=== PATIENT | male | born 1950 | race Caucasian/White ===

== ENCOUNTER 2022-01-11 12:03 | Emergency (ER) | payer OTHER ==
[~2022-01-11] VITALS: Ht 165.1 cm; Wt 50.8 kg
[2022-01-11 12:33] LABS: BASOPHILS ABSOLUTE AUTO 0.04 K/mm3 (0.00-0.23); BASOPHILS PERCENT AUTO 1 % (0-2); EOSINOPHILS ABSOLUTE AUTO 0.07 K/mm3 (0.00-0.68); EOSINOPHILS PERCENT AUTO 1 % (0-6); Hematocrit 38.7 % (37.0-53.0); Hemoglobin 13.6 g/dL (13.5-17.5); IMMATURE GRAN ABSOLUTE AUTO 0.01 K/mm3 (0.00-0.10); IMMATURE GRAN PERCENT AUTO 0 % (0-1); LYMPHOCYTES ABSOLUTE AUTO 0.74 K/mm3 (0.84-5.20); LYMPHOCYTES PERCENT AUTO 11 % (21-46); MONOCYTES ABSOLUTE AUTO 0.87 K/mm3 (0.16-1.47); MONOCYTES PERCENT AUTO 13 % (4-13); Mean Corpuscular HGB 30.4 pg (26.0-34.0); Mean Corpuscular HGB Conc 35.1 g/dL (31.5-36.5); Mean Corpuscular Volume 86 fL (80-100); Mean Platelet Volume 8.3 fL (9.1-12.4); NEUTROPHILS ABSOLUTE AUTO 5.06 K/mm3 (1.96-9.15); NEUTROPHILS PERCENT AUTO 75 % (41-73); Platelet Count 308 K/mm3 (150-400); RDW Coefficient Variation 12.3 % (11.7-14.2); RDW Standard Deviation 39.2 fL (35.1-46.3); Red Blood Cell Count 4.48 M/mm3 (4.30-5.90); White Blood Cell Count 6.79 K/mm3 (4.00-11.30)
[2022-01-11 12:58] LABS: Magnesium, Blood 1.9 mg/dL (1.6-2.4)
[2022-01-11 12:59] LABS: Albumin, Blood 3.2 g/dL (3.4-5.0); Albumin/Globulin Ratio 0.8 (0.8-1.8); Bilirubin, Total 0.8 mg/dL (0.1-1.0); Calcium, Blood 9.3 mg/dL (8.5-10.1); Creatinine, Blood 0.9 mg/dL (0.60-1.20); Globulin, Blood 3.8 g/dL (2.2-4.0); Potassium, Blood 4.7 mmol/L (3.5-5.5)
== END 2022-01-11 14:52 | disposition home or self-care (01) ==
LOC: ER 12:03
PROVIDERS: Physician Assistant
DX: R19.7 Diarrhea, unspecified (principal); E11.9 Type 2 diabetes mellitus without complications; Z88.0 Allergy status to penicillin; Z88.5 Allergy status to narcotic agent; Z88.6 Allergy status to analgesic agent; Z88.8 Allergy status to other drugs, medicaments and biological substances; Z79.899 Other long term (current) drug therapy
CPT/HCPCS: 36415; 80053; 83690; 83735; 85025; A9270

== ENCOUNTER → 2022-01-11 | Outpatient (CLI) | payer OTHER ==
[~2022-01-11] MED LIST: CYCL10 PO; LISI5 PO; OXYC5; Roxicodone5 MG PO
[2022-01-12 13:15] LABS: Adenovirus F 40/41 Not Detected (NOT DETECT); Astrovirus Not Detected (NOT DETECT); Campylobacter Sp Not Detected (NOT DETECT); Cryptosporidium Not Detected (NOT DETECT); Cyclospora Cayetanensis Not Detected (NOT DETECT); E. Coli O157 Not Detected (NOT DETECT); Entamoeba Histolytica Not Detected (NOT DETECT); Enteroaggregative E. coli-EAEC Not Detected (NOT DETECT); Enteropathogenic E. coli-EPEC Not Detected (NOT DETECT); Enterotoxigenic E. coli-ETEC Not Detected (NOT DETECT); Giardia Lamblia Not Detected (NOT DETECT); Norovirus GI/GII Not Detected (NOT DETECT); Plesiomonas Shigelloides Not Detected (NOT DETECT); Rotavirus A Not Detected (NOT DETECT); Salmonella Sp Not Detected (NOT DETECT); Sapovirus Not Detected (NOT DETECT); Shiga Toxin-prod E. coli-STEC Not Detected (NOT DETECT); Shigella/Enteroin E. coli-EIEC Not Detected (NOT DETECT); Vibrio Cholerae Not Detected (NOT DETECT); Vibrio Sp Not Detected (NOT DETECT); Yersinia Enterocolitica Not Detected (NOT DETECT)
== END | disposition home or self-care (01) ==
LOC: LAB SHORT 15:47 → LAB 15:47 → LAB SHORT 01-12 10:10
PROVIDERS: Physician Assistant
DX: K52.9 Noninfective gastroenteritis and colitis, unspecified (principal)
CPT/HCPCS: 87507

== ENCOUNTER 2022-02-02 11:12 | Emergency (ER) | payer OTHER ==
[~2022-02-02] VITALS: Ht 165.1 cm; Wt 47.0 kg
[2022-02-02 12:09] LABS: BASOPHILS ABSOLUTE AUTO 0.03 K/mm3 (0.00-0.23); BASOPHILS PERCENT AUTO 1 % (0-2); EOSINOPHILS ABSOLUTE AUTO 0.06 K/mm3 (0.00-0.68); EOSINOPHILS PERCENT AUTO 1 % (0-6); Hematocrit 36.9 % (37.0-53.0); Hemoglobin 12.7 g/dL (13.5-17.5); IMMATURE GRAN ABSOLUTE AUTO 0.01 K/mm3 (0.00-0.10); IMMATURE GRAN PERCENT AUTO 0 % (0-1); LYMPHOCYTES ABSOLUTE AUTO 0.57 K/mm3 (0.84-5.20); LYMPHOCYTES PERCENT AUTO 9 % (21-46); MONOCYTES ABSOLUTE AUTO 0.63 K/mm3 (0.16-1.47); MONOCYTES PERCENT AUTO 10 % (4-13); Mean Corpuscular HGB 30.3 pg (26.0-34.0); Mean Corpuscular HGB Conc 34.4 g/dL (31.5-36.5); Mean Corpuscular Volume 88 fL (80-100); Mean Platelet Volume 7.9 fL (9.1-12.4); NEUTROPHILS ABSOLUTE AUTO 4.78 K/mm3 (1.96-9.15); NEUTROPHILS PERCENT AUTO 79 % (41-73); Platelet Count 367 K/mm3 (150-400); RDW Coefficient Variation 12.5 % (11.7-14.2); RDW Standard Deviation 39.7 fL (35.1-46.3); Red Blood Cell Count 4.19 M/mm3 (4.30-5.90); White Blood Cell Count 6.08 K/mm3 (4.00-11.30)
[2022-02-02 12:27] LABS: Albumin, Blood 3.2 g/dL (3.4-5.0); Albumin/Globulin Ratio 0.9 (0.8-1.8); Bilirubin, Total 0.5 mg/dL (0.1-1.0); Bun/Creatinine Ratio 11.1 (12.0-20.0); Calcium, Blood 9.1 mg/dL (8.5-10.1); Creatinine, Blood 0.9 mg/dL (0.60-1.20); Globulin, Blood 3.7 g/dL (2.2-4.0); Potassium, Blood 5.1 mmol/L (3.5-5.5); Total Protein, Blood 6.9 g/dL (6.4-8.2)
[2022-02-02] MEDS ORDERED: TAMSULOSIN HCL0.4 M1 PO (14:53)
[2022-02-02] MEDS ORDERED: Atarax10 MG (14:54)
[2022-02-02] MEDS ORDERED: CIME400 PO (14:57)
[2022-02-02] MEDS ORDERED: MOXI400 PO (16:25)
== END 2022-02-02 17:15 | disposition home or self-care (01) ==
LOC: ER 11:12
PROVIDERS: Physician Assistant
DX: K65.1 Peritoneal abscess (principal); Z79.899 Other long term (current) drug therapy; Z88.0 Allergy status to penicillin; Z88.5 Allergy status to narcotic agent; Z88.8 Allergy status to other drugs, medicaments and biological substances
CPT/HCPCS: 36415; 74177; 80053; 83690; 85025; 96361; 96365; 99284-25; A9270; J2185; J7030; Q9967

== ENCOUNTER 2022-12-09 06:42 | Inpatient (IN) | payer OTHER ==
[~2022-12-09] VITALS: Ht 167.6 cm; Wt 56.2 kg
[~2022-12-09 06:42] MED LIST changes: +Atarax10 MG; +CIME400 PO; +MOXI400 PO; +TAMSULOSIN HCL0.4 M1 PO
[2022-12-09 07:29] LABS: BASOPHILS ABSOLUTE AUTO 0.03 K/mm3 (0.00-0.23); BASOPHILS PERCENT AUTO 0 % (0-2); EOSINOPHILS ABSOLUTE AUTO 0.07 K/mm3 (0.00-0.68); EOSINOPHILS PERCENT AUTO 1 % (0-6); Hematocrit 39.5 % (37.0-53.0); Hemoglobin 14.3 g/dL (13.5-17.5); IMMATURE GRAN ABSOLUTE AUTO 0.03 K/mm3 (0.00-0.10); IMMATURE GRAN PERCENT AUTO 0 % (0-1); LYMPHOCYTES ABSOLUTE AUTO 1.05 K/mm3 (0.84-5.20); LYMPHOCYTES PERCENT AUTO 9 % (21-46); MONOCYTES ABSOLUTE AUTO 1.25 K/mm3 (0.16-1.47); MONOCYTES PERCENT AUTO 10 % (4-13); Mean Corpuscular HGB 30.7 pg (26.0-34.0); Mean Corpuscular HGB Conc 36.2 g/dL (31.5-36.5); Mean Corpuscular Volume 85 fL (80-100); NEUTROPHILS ABSOLUTE AUTO 9.58 K/mm3 (1.96-9.15); NEUTROPHILS PERCENT AUTO 80 % (41-73); Platelet Count 343 K/mm3 (150-400); RDW Coefficient Variation 12.8 % (11.7-14.2); RDW Standard Deviation 38.9 fL (35.1-46.3); Red Blood Cell Count 4.66 M/mm3 (4.30-5.90); White Blood Cell Count 12.01 K/mm3 (4.00-11.30)
[2022-12-09 08:58] LABS: Magnesium, Blood 1.8 mg/dL (1.6-2.4)
[2022-12-09 09:00] LABS: Albumin, Blood 3.2 g/dL (3.4-5.0); Bilirubin, Total 0.9 mg/dL (0.1-1.0); Bun/Creatinine Ratio 10.5 (12.0-20.0); Calcium, Blood 8.1 mg/dL (8.5-10.1); Creatinine, Blood 7.52 mg/dL (0.60-1.20); Globulin, Blood 3.3 g/dL (2.2-4.0); Total Protein, Blood 6.5 g/dL (6.4-8.2)
[2022-12-09 12:02] LABS: Bun/Creatinine Ratio 12.2 (12.0-20.0); Calcium, Blood 7.9 mg/dL (8.5-10.1); Creatinine, Blood 5.65 mg/dL (0.60-1.20)
[2022-12-09 12:06] VITALS: BP 111/58
[2022-12-09] MEDS ORDERED: LANSOPRAZOLE15 MG PO (12:21)
[2022-12-09] MEDS ORDERED: LOPE2C PO (12:22)
[2022-12-09 16:55] VITALS: BP 110/73
--- NOTE | 2022-12-09 17:59 | NUR ---
SHIFT NOTE. ASSUMED CARE FOR PT AT 1200 AN ADMIT FROM ED. PT ADMITTED W DEHYDRATION AND HYPONATREMIA. LR INITIATED IN ED, PT IS ON SECOND BAG OF 1,000 ML LR. PT WAS EDUCATED ABOUT CALL LIGHT, IT IS POORLY UTILIZED. PT PREFERS TO CARE FOR ILEOSTOMY HIMSELF AND REQUESTS PADS FOR INTERMITTENT RECTAL BLEEDING. PT DENIES PAIN, NAUSEA, OR DIZZINESS AND REMAINS IN BED VISITING WITH FAMILY AT BEDSIDE. CALL LIGHT REMAINS WITHIN REACH, WILL CONTINUE TO MONITOR AND GIVE BEDSIDE REPORT TO NOC RN.
--- NOTE | 2022-12-09 18:29 | NUR ---
Pt. is awake in bed surrounded by supportive family when he welcomes my visit. Pt. is pleasant, but unsettled by the weakness in his body that he is experiencing. Facilitate a life review and consider matters of joshua, belief and family. Pt. displays evidenc of being fully engaged and aware, and has a supportive family system at bedside. Prayed with the Pt. and family. Family verbalized gratitude for the spiritual care visit.
[2022-12-09 20:00] VITALS: BP 122/66
[2022-12-10 00:32] VITALS: BP 128/68
[2022-12-10 04:13] VITALS: BP 133/70
--- NOTE | 2022-12-10 04:25 | NUR ---
SHIFT SUMMARY AOX4, HIGHLY ANXIOUS. STATES HE IS ALLERGIC TO ALL MEDS PRIOR TO GIVING, REASURE MEDS ARENT ON ALLERGY LIST. MEDICATED 1x c 25MG HYDROXAZINE, PT ABLE TO REST QUIETLY & COMFORTABLY FOR 1 HR. VSS. TELE NSR HR 86. REPORTS CONSTANT EPIGASTRIC ACID, BURNING DISCOMFORT. STATES HE SWALLOWED GAS-X INSTEAD OF CHEWING TAB & HAD BURNING DISCOMFORT SINCE. AROUND 0000 PT REPORTED BURNING DISCOMFORT WORSENING, MEDICATED c 500MG TUMS & 20MG PRILOSEC PER DR KING ORDERS. PT ALSO REPORTED NAUSEA, MEDICATED c ZOFRAN & PT STARTED DRY HEAVING c EMESIS. 350ML UNDIGESTED CARROT, BROCCOLI & OTHER FOOD IN EMESIS. MEDICATED c 5MG REGLAN PER DR KING ORDERS. HYPERACTIVE BT. ILEOSTOMY c MIN SOFT BROWN, GREEN BM IN BAG-APPLIANCE INTACT. PT STILL HAVING MIN BRIGHT RED RECTAL BLEEDING, USING PADS. CALL LIGHT IN REACH & PT ABLE TO MAKE NEEDS KNOWN.
[2022-12-10 05:00] LABS: Bun/Creatinine Ratio 23.8 (12.0-20.0); Calcium, Blood 8.9 mg/dL (8.5-10.1); Creatinine, Blood 1.89 mg/dL (0.60-1.20); Potassium, Blood 4.4 mmol/L (3.5-5.5)
[2022-12-10 09:34] VITALS: BP 121/69
[2022-12-10 10:30] VITALS: BP 139/83
--- NOTE | 2022-12-10 16:54 | NUR ---
SHIFT SUMMARY PT A&O X4. PT HAS BEEN THROWING UP SINCE ARRIAVAL TO UNIT AT 1100. HAS BEEN MEDICATED FOR N/V PER EMAR. PT HAS NOT BEEN TOLERATING ANYTHING PO. DENIES ANY PAIN. ABLE TO AMBULATE TO BATHROOM AND BACK WITH ASST FROM NURSE. USES URINAL AND EMPTIES OSTOMY INDEPENDENTLY. NO RECTAL BLEEDING DURING SHIFT. FAMILY AT BEDSIDE.
[2022-12-10 19:51] VITALS: BP 112/67
[2022-12-11] VITALS (18 sets, daily range): BP systolic 89–148; BP diastolic 44–84
[2022-12-11 05:12] LABS: Hematocrit 38.1 % (37.0-53.0); Mean Corpuscular HGB Conc 34.1 g/dL (31.5-36.5); Mean Corpuscular Volume 88 fL (80-100); Mean Platelet Volume 9.2 fL (9.1-12.4); Platelet Count 275 K/mm3 (150-400); RDW Coefficient Variation 12.6 % (11.7-14.2); RDW Standard Deviation 40.9 fL (35.1-46.3); Red Blood Cell Count 4.34 M/mm3 (4.30-5.90)
[2022-12-11 05:44] LABS: Albumin, Blood 3.1 g/dL (3.4-5.0); Albumin/Globulin Ratio 0.9 (0.8-1.8); Bilirubin, Total 1.2 mg/dL (0.1-1.0); Bun/Creatinine Ratio 23.3 (12.0-20.0); Calcium, Blood 8.8 mg/dL (8.5-10.1); Creatinine, Blood 1.46 mg/dL (0.60-1.20); Globulin, Blood 3.4 g/dL (2.2-4.0); Potassium, Blood 4.7 mmol/L (3.5-5.5); Total Protein, Blood 6.5 g/dL (6.4-8.2)
--- NOTE | 2022-12-11 06:26 | NUR ---
SHIFT SUMMARY AOX4-FORGETFUL & IMPULSIVE @BEGINNING OF SHIFT. USING CALL LIGHT MORE TOWARDS END OF NIGHT. VSS. DENIES PAIN. DID REPORT NAUSEA & HAVE MILD DRY HEAVING @HS, MEDICATED 1x c ZOFRAN & 1x c REGLAN. THIS AM PT STATES HE NO LONGER FEELS NAUSEATED & HASNT HAD ANY DRY HEAVING OR EMESIS. ILEOSTOMY HAD 1900ML DARK GREEN LIQUID OUTPUT OUT THIS SHIFT. PT DENIES ABD TENDERNESS. ACTIVE BT. STATES HE FEELS LIKE EATING OR DRINKING THIS AM, HAS BEEN NPO SINCE 0000 FOR POSSIBLE PROCEDURE. PT DID TAKE 2 XS BITES OF BANANA THIS AM BECAUSE HE FORGOT HE WASNT SUPPOSE TO EAT. CALL LIGHT IN REACH & PT ABLE TO MAKE NEEDS KNOWN.
--- NOTE | 2022-12-11 13:24 | NUR ---
PATIENT STATED OK TO REMOVE PROPOFOL FROM ALLERGY LIST. PATIENT WAS CONFUSED OF THE MEDICATION THAT WAS USED FOR RECTAL CA TREATMENTS. STATED IT CAUSED HALLUCINATIONS. THIS IS NOT A TRUE ALLERGY IF MEDICATION WAS USED. SPOKE TO DR HERNÁNDEZ, ANESTHESIOLOGIST AND AGREED TO PROCEED WITH EGD USING PROPOFOL FOR SEDATION. INFORMED DR LEIGH REGARDING SITUATION AND WAS OK TO PROCEED. ALSO, FAMILY WAS INFORMED OF THE MEDICATION BEING REMOVED FROM ALLERGY LIST.
--- NOTE | 2022-12-11 16:55 | NUR ---
SHIFT SUMMARY PODO EDG PT A&O X4, ABLE TO AMBULATE IN ROOM WITH SOME ASST. PT TOLERATED EGD WELL. NO COMPAINTS OF PAIN. NO N/V T/O SHIFT. FAMILY AT BEDSIDE T/O DAY. VSS T/O SHIFT.
[2022-12-12 03:50] VITALS: BP 120/71
--- NOTE | 2022-12-12 05:06 | NUR ---
SHIFT SUMMARY AOX4. MORE ALERT THIS ABBEY THEN PREVIOUS NIGHT. VSS. DENIES ANY N/V OR ABD DISCOMFORT. STATES "FEELING WAY BETTER". TOLERATING PO INTAKE. ACTIVE BT. ILEOSTOMY c BROWN/YELLOW LOOSE-SOFT BM IN BAG. PT ABLE TO IND TRANSFER TO RESTROOM & EMPTY OWN ILEOSTOMY & USE URINAL. PLAN TO POSSIBLE DC TODAY. CALL LIGHT IN REACH.
[2022-12-12 06:13] LABS: Hematocrit 40.3 % (37.0-53.0); Hemoglobin 13.7 g/dL (13.5-17.5); Mean Corpuscular HGB 30.1 pg (26.0-34.0); Mean Corpuscular Volume 89 fL (80-100); Mean Platelet Volume 8.8 fL (9.1-12.4); Platelet Count 272 K/mm3 (150-400); RDW Coefficient Variation 12.5 % (11.7-14.2); RDW Standard Deviation 40.8 fL (35.1-46.3); Red Blood Cell Count 4.55 M/mm3 (4.30-5.90); White Blood Cell Count 6.45 K/mm3 (4.00-11.30)
[2022-12-12 06:35] LABS: Bun/Creatinine Ratio 22.2 (12.0-20.0); Calcium, Blood 9.2 mg/dL (8.5-10.1); Creatinine, Blood 1.26 mg/dL (0.60-1.20); Potassium, Blood 4.4 mmol/L (3.5-5.5)
[2022-12-12 07:13] VITALS: BP 112/73
[2022-12-12] MEDS ORDERED: SIME80CH PO (13:57)
[2022-12-12 14:27] VITALS: BP 108/60
--- NOTE | 2022-12-12 15:24 | NUR ---
DISCHARGE PT PROVIDED WITH WRITTEN AND VERBAL DISCHARGE INSTRUCTIONS, PT REPORTED UNDERSTANDING. NO NAUSEA OR VOMITING PRIOR TO DISCHARGE. VSS. PT EDUCATED TO F/U WITH PCP IN 1 WEEK REGARDING HOSPITAL STAY AND FOR REPEAT LABS. PT EDUCATED TO SEEK HELP IF SYMPTOMS RETURN. PT ESCORTED OUT IN W/C BY FAMILY AT 1502.
== END 2022-12-12 15:00 | disposition home or self-care (01) | DRG 683 ==
LOC: ER 06:42 → PCU 06:43 → SURS 12-10 10:34
PROVIDERS: Emergency Medicine; Student in an Organized Health Care Education/Training Program; ADMIT Internal Medicine
PROC: 0DB68ZX Excision of Stomach, Via Natural or Artificial Opening Endoscopic, Diagnostic (ICD-10-PCS; 2022-12-11)
PROC: 0DB18ZX Excision of Upper Esophagus, Via Natural or Artificial Opening Endoscopic, Diagnostic (ICD-10-PCS; principal; 2022-12-11 13:00)
DX: N17.9 Acute kidney failure, unspecified (principal); E87.1 Hypo-osmolality and hyponatremia; E86.0 Dehydration; K25.9 Gastric ulcer, unspecified as acute or chronic, without hemorrhage or perforation; R63.6 Underweight; E11.9 Type 2 diabetes mellitus without complications; R11.2 Nausea with vomiting, unspecified; Z90.49 Acquired absence of other specified parts of digestive tract; Z98.890 Other specified postprocedural states; Z87.442 Personal history of urinary calculi; Z93.2 Ileostomy status; Z85.048 Personal history of other malignant neoplasm of rectum, rectosigmoid junction, and anus; Z92.3 Personal history of irradiation; Z88.0 Allergy status to penicillin; Z88.8 Allergy status to other drugs, medicaments and biological substances; Z88.1 Allergy status to other antibiotic agents; Z88.5 Allergy status to narcotic agent; Z88.2 Allergy status to sulfonamides; Z79.899 Other long term (current) drug therapy; Z79.811 Long term (current) use of aromatase inhibitors; Z68.20 Body mass index [BMI] 20.0-20.9, adult
CPT/HCPCS: 36415; 70450; 72125; 74177; 80048; 80053; 83605; 83690; 83735; 85025; 85027; 88305; 88342; 93005; 93010; 96374; 96375; 96376; 97161; 99285-25; A9270; C9113; G0378; J1200; J2060; J2405; J2704; J2765; J7030; J7120; Q9967

== ENCOUNTER 2025-04-01 20:08 | Inpatient (IN) | payer OTHER ==
[~2025-04-01] VITALS: Ht 165.1 cm; Wt 56.9 kg
[~2025-04-01 20:08] MED LIST changes: +AMLODIPINE BESYL5 MG PO; +LANSOPRAZOLE15 MG PO; +LOPE2C PO; +SIME80CH PO
[2025-04-01] MEDS ORDERED: Pantoprazole Sodium 40 MG Injection IV ONE (20:45)
[2025-04-01 20:51] LABS: BASOPHILS ABSOLUTE AUTO 0.02 K/mm3 (0.00-0.23); BASOPHILS PERCENT AUTO 0 % (0-2); EOSINOPHILS ABSOLUTE AUTO 0.05 K/mm3 (0.00-0.68); EOSINOPHILS PERCENT AUTO 0 % (0-6); Hematocrit 39.4 % (37.0-53.0); Hemoglobin 14.1 g/dL (13.5-17.5); IMMATURE GRAN ABSOLUTE AUTO 0.03 K/mm3 (0.00-0.10); IMMATURE GRAN PERCENT AUTO 0 % (0-1); LYMPHOCYTES ABSOLUTE AUTO 0.50 K/mm3 (0.84-5.20); LYMPHOCYTES PERCENT AUTO 4 % (21-46); MONOCYTES ABSOLUTE AUTO 0.56 K/mm3 (0.16-1.47); MONOCYTES PERCENT AUTO 5 % (4-13); Mean Corpuscular HGB Conc 35.8 g/dL (31.5-36.5); Mean Corpuscular Volume 86 fL (80-100); NEUTROPHILS ABSOLUTE AUTO 10.89 K/mm3 (1.96-9.15); NEUTROPHILS PERCENT AUTO 91 % (41-73); NRBC ABSOLUTE 0.00 K/mm3 (0.00-0.02); NRBC Auto 0.0 /100 WBC (0.0-0.2); Platelet Count 297 K/mm3 (150-400); RDW Coefficient Variation 12.4 % (11.7-14.2); RDW Standard Deviation 38.4 fL (35.1-46.3)
[2025-04-01 21:08] LABS: Alanine Aminotransfer (ALT/SGP 19.0 U/L (12-78); Albumin, Blood 3.5 g/dL (3.4-5.0); Albumin/Globulin Ratio 1.0 (0.8-1.8); Anion Gap 13.0 mmol/L (3-11); Aspartate Aminotrans (AST/SGOT 25.0 U/L (12-37); Bilirubin, Total 1.3 mg/dL (0.1-1.0); Blood Urea Nitrogen 7.0 mg/dL (8-24); CO2, Blood 20.0 mmol/L (21-32); Calcium, Blood 8.6 mg/dL (8.5-10.1); Chloride, Blood 99.0 mmol/L (98-108); Creatinine, Blood 0.86 mg/dL (0.60-1.20); Globulin, Blood 3.6 g/dL (2.2-4.0); Glucose, Blood 137.0 mg/dL (70-99); Potassium, Blood 3.5 mmol/L (3.5-5.5); Sodium, Blood 128.0 mmol/L (136-145); Total Protein, Blood 7.1 g/dL (6.4-8.2)
[2025-04-01] MEDS ORDERED: NS 1,000 ML IV SCH (22:05)
[2025-04-01] MEDS ORDERED: Haloperidol Lactate Inj. 5 MG/ML Injection IV ONE (22:05)
[2025-04-01] MEDS ORDERED: FentaNYL Citrate 50 MCG/ML 2 ML Injection IV ONE (23:40)
[2025-04-02] MEDS ORDERED: LORazepam 2 MG/ML 1ML Injection IV ONE (00:26)
[2025-04-02] MEDS ORDERED: Naloxone HCl 0.4MG / ML 1ML Vial IV PRN (01:45)
[2025-04-02] MEDS ORDERED: FentaNYL Citrate 50 MCG/ML 2 ML Injection IV PRN (01:45)
[2025-04-02] MEDS ORDERED: Ondansetron HCl 2 MG / ML 2ML Vial IV PRN (01:50)
[2025-04-02 05:13] VITALS: BP 136/71
[2025-04-02 07:00] VITALS: BP 139/72
[2025-04-02 08:42] LABS: BASOPHILS ABSOLUTE AUTO 0.02 K/mm3 (0.00-0.23); BASOPHILS PERCENT AUTO 0 % (0-2); EOSINOPHILS ABSOLUTE AUTO 0.01 K/mm3 (0.00-0.68); EOSINOPHILS PERCENT AUTO 0 % (0-6); Hematocrit 39.5 % (37.0-53.0); Hemoglobin 13.9 g/dL (13.5-17.5); IMMATURE GRAN ABSOLUTE AUTO 0.00 K/mm3 (0.00-0.10); IMMATURE GRAN PERCENT AUTO 0 % (0-1); LYMPHOCYTES ABSOLUTE AUTO 0.39 K/mm3 (0.84-5.20); LYMPHOCYTES PERCENT AUTO 7 % (21-46); MONOCYTES ABSOLUTE AUTO 0.63 K/mm3 (0.16-1.47); MONOCYTES PERCENT AUTO 11 % (4-13); Mean Corpuscular HGB Conc 35.2 g/dL (31.5-36.5); Mean Corpuscular Volume 86 fL (80-100); NEUTROPHILS ABSOLUTE AUTO 4.93 K/mm3 (1.96-9.15); NEUTROPHILS PERCENT AUTO 83 % (41-73); NRBC ABSOLUTE 0.00 K/mm3 (0.00-0.02); NRBC Auto 0.0 /100 WBC (0.0-0.2); Platelet Count 273 K/mm3 (150-400); RDW Coefficient Variation 12.6 % (11.7-14.2); RDW Standard Deviation 39.5 fL (35.1-46.3)
[2025-04-02 08:55] LABS: Alanine Aminotransfer (ALT/SGP 26.0 U/L (12-78); Albumin, Blood 3.4 g/dL (3.4-5.0); Albumin/Globulin Ratio 1.0 (0.8-1.8); Anion Gap 11.0 mmol/L (3-11); Aspartate Aminotrans (AST/SGOT 27.0 U/L (12-37); Bilirubin, Total 1.5 mg/dL (0.1-1.0); Blood Urea Nitrogen 6.0 mg/dL (8-24); CO2, Blood 25.0 mmol/L (21-32); Calcium, Blood 8.5 mg/dL (8.5-10.1); Chloride, Blood 99.0 mmol/L (98-108); Creatinine, Blood 0.87 mg/dL (0.60-1.20); Globulin, Blood 3.3 g/dL (2.2-4.0); Glucose, Blood 121.0 mg/dL (70-99); Potassium, Blood 4.4 mmol/L (3.5-5.5); Sodium, Blood 131.0 mmol/L (136-145); Total Protein, Blood 6.7 g/dL (6.4-8.2)
[2025-04-02] MEDS ORDERED: Lactobacil 2-S.Thermo-Bifido 1 1 Cap PO SCH (09:00)
[2025-04-02] MEDS ORDERED: HYDROmorphone HCl/Pf 1MG SYR IV PRN (09:10)
[2025-04-02] MEDS ORDERED: Enoxaparin 40 MG/0.4 ML SYR SC SCH (11:00)
--- NOTE | 2025-04-02 11:04 | NUR ---
"Spiritual Care Visit | Pt. Request Pt. is awake in bed and welcomes my visit. Pt. is pleasant and welcoming. Facilitated a life review where the Pt. shared about his spouse who also has some growing cancer concerns. Listen with empahty and interest. Pt. verbalized about his doris. Matters of Doris and belief are considered. Prayed with the Pt. Pt. requested this veneer matcher contact his zoroastrian about his hospital admission."
[2025-04-02 15:40] VITALS: BP 146/69
--- NOTE | 2025-04-02 16:45 | NUR ---
SUMMARY PATIENT IS AOX4, ABLE TO MAKE NEEEDS KNOWN. NG TUBE IN PLACE, NPO AT THIS TIME. IVF RUNNING. SCDS IN PLACE. PAIN MEDICATION PER EMAR. ABLE TO TRANSFER SELF TO BSC TO VOID. MINIMAL OUTPUT IN NG CANISTER. GREEN IN COLOR. NO STOOL OR FLATUS IN OSTOMY. NO EVENTS THIS SHIFT, VSS. CALL LIGHT IN REACH.
[2025-04-02 19:01] VITALS: BP 136/73
[2025-04-03] MEDS ORDERED: LORazepam 2 MG/ML 1ML Injection IV PRN (01:20)
[2025-04-03 04:22] VITALS: BP 133/66
[2025-04-03 05:19] LABS: Hematocrit 37.9 % (37.0-53.0); Hemoglobin 13.1 g/dL (13.5-17.5); Mean Corpuscular HGB Conc 34.6 g/dL (31.5-36.5); Mean Corpuscular Volume 89 fL (80-100); NRBC ABSOLUTE 0.00 K/mm3 (0.00-0.02); NRBC Auto 0.0 /100 WBC (0.0-0.2); Platelet Count 235 K/mm3 (150-400); RDW Coefficient Variation 13.0 % (11.7-14.2); RDW Standard Deviation 42.5 fL (35.1-46.3)
[2025-04-03 05:55] LABS: Alanine Aminotransfer (ALT/SGP 39.0 U/L (12-78); Albumin, Blood 2.8 g/dL (3.4-5.0); Albumin/Globulin Ratio 0.9 (0.8-1.8); Anion Gap 9.0 mmol/L (3-11); Aspartate Aminotrans (AST/SGOT 28.0 U/L (12-37); Bilirubin, Total 1.3 mg/dL (0.1-1.0); Blood Urea Nitrogen 11.0 mg/dL (8-24); CO2, Blood 27.0 mmol/L (21-32); Calcium, Blood 8.3 mg/dL (8.5-10.1); Chloride, Blood 101.0 mmol/L (98-108); Creatinine, Blood 0.88 mg/dL (0.60-1.20); Globulin, Blood 3.2 g/dL (2.2-4.0); Glucose, Blood 104.0 mg/dL (70-99); Potassium, Blood 4.1 mmol/L (3.5-5.5); Sodium, Blood 133.0 mmol/L (136-145); Total Protein, Blood 6.0 g/dL (6.4-8.2)
[2025-04-03 05:56] LABS: BAND PERCENT MAN 43 % (0-8); BASOPHILS ABSOLUTE MAN 0.00 K/mm3 (0.00-0.23); BASOPHILS PERCENT MAN 0 % (0-2); EOSINOPHILS ABSOLUTE MAN 0.00 K/mm3 (0.00-0.68); EOSINOPHILS PERCENT MAN 0 % (0-6); LYMPHOCYTES ABSOLUTE MAN 0.47 K/mm3 (0.84-5.20); LYMPHOCYTES PERCENT MAN 12 % (21-46); METAMYELOCYTE ABSOLUTE MAN 0.03 K/mm3 (0.00-0.00); METAMYELOCYTE PERCENT MAN 1 % (0-0); MONOCYTES ABSOLUTE MAN 0.67 K/mm3 (0.16-1.47); MONOCYTES PERCENT MAN 17 % (4-13); NEUTROPHILS ABSOLUTE MAN 2.78 K/mm3 (1.96-9.15); SEG NEUTROPHILS PERCENT MAN 27 % (41-73)
--- NOTE | 2025-04-03 06:46 | NUR ---
SHIFT SUMMARY AT START OF SHIFT, PT SITTING UP IN BED. HIS LR RECONNECTED. TURNED DOWN RATE TO 75ML/HR TO PREVENT INFILTRATION D/T SMALL GAUGE IV. PT GIVEN PAIN MEDICATION COVERAGE AT 1918. AT REASSESSMENT, PT STATED PAIN LEVEL AT A 2/10. MEDICATED FOR PAIN PER EMAR AT 2334. APPROX [id number], PT STATED HE WAS FEELING ANXIOUS. CALLED DOCTOR DEBBIE AND ORDERED IV ATIVAN. PT SLEEPING, WILL ADMINISTER UPON WAKING.
[2025-04-03 07:12] VITALS: BP 146/67
[2025-04-03] MEDS ORDERED: LOSA25 PO (08:44)
[2025-04-03 10:27] VITALS: BP 141/71
--- NOTE | 2025-04-03 10:30 | NUR ---
UPDATE PATIENT IN IMAGING FOR SMALL BOWEL FOLLOW THROUGH. TECH CALLED FOR RN TO ADVANCE NG TUBE IT WAS NOT IN CORRECT PLACEMENT. CHARGE ABLE TO GO DOWN AND ADVANCE TUBE. CONTRAST GIVEN AND PATIENT IMMEDIATELY VOMITTED 1200ML. PATIENT UNABLE TO TOLERATE MORE IMAGING. BACK IN ROOM THIS RN HOOKED NG TUBE TO SX, PATIENT VOMITTED ANOTHER 400ML OF GREEN LIQUID. NOTIFIED DR. JOHNS OF TEST FAIL. PATIENT BACK IN ROOM SITTING UP 90 DEGREES. IV ACCESS IS LOST AT THIS TIME. WILL TRY TO ATTEMPT ANOTHER IV START. CALL LIGHT IN REACH. VSS.
--- NOTE | 2025-04-03 11:34 | NUR ---
Pt. is awake but drowsy in bed. Spouse and Son are at bedisde. Facilitated an update, and the family verbalized that the Pt. returned form his scan more lethergic. Pt. displayed evidence of feeling miserable. Prayed with Pt. Family verbalized gratitude for the spiritual care visit. Notified the charge nurse of the Pts. concerns.
[2025-04-03 15:56] VITALS: BP 137/66
--- NOTE | 2025-04-03 17:10 | NUR ---
SHIFT SUMMARY PATIENT WENT FOR SMALL BOWEL FOLLOW THROUGH. UNABLE TO TOLERATE CONTRAST BACK TO ROOM VOMITTING 1000ML OF EMESIS. HOOKED BACK TO SX. 1200ML OUT IN NG TUBE. PATIENT APPEARING ANXIOUS T/O DAY, WAS ABLE TO SLEEP FOR A FEW HOURS. DENIES PAIN AT THIS TIME. STOMA WITH YELLOW LIQUID OUTPUT THIS AM, NOW WITH GREEN LIQUID OUTPUT. VOIDING WITH BSC, SBA. X-RAY DONE THIS AFTERNOON. DR. JOHNS IN TO ROUND. CONT. WITH NG TUBE, OVERNIGHT. PATIENT AGREEABLE. FAMILY IN ROOM TO SUPPORT PATIENT. VSS. CALL LIGHT IN REACH.
[2025-04-03 19:06] VITALS: BP 126/58
[2025-04-04 06:18] VITALS: BP 134/65
--- NOTE | 2025-04-04 06:38 | NUR ---
SHIFT SUMMARY PT HAS DONE WELL OVERNIGHT. PT DENIES PAIN T/O THE NIGHT. NO ANXIETY. PT REPORTS THAT HE IS PASSING SOME GAS, GREEN LIQUID OUTPUT IN ILLEOSTOMY, EMPTIED SEVERAL TIMES THIS SHIFT. BOWEL TONES HYPOACTIVE. PT PULLED HIS NG WHEN GETTING OOB. PT HAS HAD MINIMAL OUTPUT FROM NG AND NO NAUSEA. DR. METCALF CALLED AND NOTIFIED THAT PT PULLED NG OUT. IT IS NOTED IN SURGEON'S NOTE THAT HE HAD PLAN TO DC NGT. DR. METCALF MADE AWARE OF THAT NOTE. DR. SARMIENTO STATES OK TO LEAVE OUT TUBE. VITALS ARE STABLE. BED IN LOWEST POSITION, CALL LIGHT WITHIN REACH.
[2025-04-04 06:41] LABS: Hematocrit 36.9 % (37.0-53.0); Hemoglobin 12.4 g/dL (13.5-17.5); Mean Corpuscular HGB Conc 33.6 g/dL (31.5-36.5); Mean Corpuscular Volume 89 fL (80-100); NRBC ABSOLUTE 0.00 K/mm3 (0.00-0.02); NRBC Auto 0.0 /100 WBC (0.0-0.2); Platelet Count 246 K/mm3 (150-400); RDW Coefficient Variation 12.9 % (11.7-14.2); RDW Standard Deviation 42.2 fL (35.1-46.3)
[2025-04-04 06:58] LABS: Alanine Aminotransfer (ALT/SGP 32.0 U/L (12-78); Albumin, Blood 3.0 g/dL (3.4-5.0); Albumin/Globulin Ratio 0.8 (0.8-1.8); Anion Gap 8.0 mmol/L (3-11); Aspartate Aminotrans (AST/SGOT 20.0 U/L (12-37); Bilirubin, Total 0.9 mg/dL (0.1-1.0); Blood Urea Nitrogen 18.0 mg/dL (8-24); CO2, Blood 32.0 mmol/L (21-32); Calcium, Blood 8.7 mg/dL (8.5-10.1); Chloride, Blood 102.0 mmol/L (98-108); Creatinine, Blood 0.86 mg/dL (0.60-1.20); Globulin, Blood 3.6 g/dL (2.2-4.0); Glucose, Blood 97.0 mg/dL (70-99); Potassium, Blood 3.9 mmol/L (3.5-5.5); Sodium, Blood 138.0 mmol/L (136-145); Total Protein, Blood 6.6 g/dL (6.4-8.2)
[2025-04-04 07:01] LABS: BAND PERCENT MAN 8 % (0-8); BASOPHILS ABSOLUTE MAN 0.00 K/mm3 (0.00-0.23); BASOPHILS PERCENT MAN 0 % (0-2); EOSINOPHILS ABSOLUTE MAN 0.00 K/mm3 (0.00-0.68); EOSINOPHILS PERCENT MAN 0 % (0-6); LYMPHOCYTES ABSOLUTE MAN 1.15 K/mm3 (0.84-5.20); LYMPHOCYTES PERCENT MAN 18 % (21-46); MONOCYTES ABSOLUTE MAN 0.32 K/mm3 (0.16-1.47); MONOCYTES PERCENT MAN 5 % (4-13); NEUTROPHILS ABSOLUTE MAN 4.93 K/mm3 (1.96-9.15); SEG NEUTROPHILS PERCENT MAN 69 % (41-73)
[2025-04-04 07:06] VITALS: BP 126/58
[2025-04-04 14:25] VITALS: BP 125/70
--- NOTE | 2025-04-04 18:18 | NUR ---
SUMMARY: PT REPORTS FEELING MUCH BETTER TODAY. NO PAIN OR NAUSEA. PT TOOK MULTIPLE WALKS IN HALLS. ANTIBIOTICS INFUSED. PT TOLERATING CLEAR LIQ AND LIQ GREEN OUTPUT FROM OSTOMY. NO ACUTE CONCERNS. PT USES CALL LIGHT, INDEP IN ROOM
[2025-04-04 19:23] VITALS: BP 127/59
[2025-04-05 02:32] VITALS: BP 144/68
--- NOTE | 2025-04-05 03:13 | NUR ---
PT WITH ONLY 50 ML VOID THIS SHIFT AND BLADDER SCAN COMPLETED @ RESULT OF [address] METCALF AND ADVISED OF BLADDER SCAN WITH PT HX OF USING FLOMAX AT HOME.FLOMAX ORDERED.
--- NOTE | 2025-04-05 03:17 | NUR ---
SPOKE TO TAMMY PHARMACIST AND WAS ADVISED IT IS OK TO GIVE PT NOW DOSE AND START DAILY DOSE IN AM.
--- NOTE | 2025-04-05 03:35 | NUR ---
FOLLOW UP CALL FROM PHARMACY WITH RECOMMENDATION CHANGE TO GIVE FLOMAX DAILY AT HS-PT TAKES AT HS.
--- NOTE | 2025-04-05 05:19 | NUR ---
SHIFT SUMMARY PT HAS RESTED T/O THE NIGHT, PT REPORTED SOME ABD AT THE BEGINNING OF THE SHIFT THAT WAS RELIEVED WITH TYLENOL. PT HAS HAD NO N/V. ILLEOSTOMY PRODCING STOOL. PT HAS BEEN VOIDING SMALL AMOUNTS OF URINE AT A TIME, BLADDER SCAN REVEALED A LITTLE UNDER 400 MLS IN BLADDER. PROVIDER NOTIFIED AND HOME FLOMAX DOSE RESUMED. PLAN IS FOR POSSIBLE DC TODAY. BED IN LOWEST POSITION, CALL LIGHT WITHIN REACH.
[2025-04-05 06:59] LABS: BASOPHILS ABSOLUTE AUTO 0.01 K/mm3 (0.00-0.23); BASOPHILS PERCENT AUTO 0 % (0-2); EOSINOPHILS ABSOLUTE AUTO 0.24 K/mm3 (0.00-0.68); EOSINOPHILS PERCENT AUTO 4 % (0-6); Hematocrit 36.8 % (37.0-53.0); Hemoglobin 12.1 g/dL (13.5-17.5); IMMATURE GRAN ABSOLUTE AUTO 0.04 K/mm3 (0.00-0.10); IMMATURE GRAN PERCENT AUTO 1 % (0-1); LYMPHOCYTES ABSOLUTE AUTO 1.02 K/mm3 (0.84-5.20); LYMPHOCYTES PERCENT AUTO 17 % (21-46); MONOCYTES ABSOLUTE AUTO 0.66 K/mm3 (0.16-1.47); MONOCYTES PERCENT AUTO 11 % (4-13); Mean Corpuscular HGB Conc 32.9 g/dL (31.5-36.5); Mean Corpuscular Volume 90 fL (80-100); NEUTROPHILS ABSOLUTE AUTO 4.23 K/mm3 (1.96-9.15); NEUTROPHILS PERCENT AUTO 68 % (41-73); NRBC ABSOLUTE 0.00 K/mm3 (0.00-0.02); NRBC Auto 0.0 /100 WBC (0.0-0.2); Platelet Count 240 K/mm3 (150-400); RDW Coefficient Variation 12.7 % (11.7-14.2); RDW Standard Deviation 42.0 fL (35.1-46.3)
[2025-04-05 07:14] VITALS: BP 131/74
[2025-04-05 07:18] LABS: Alanine Aminotransfer (ALT/SGP 31.0 U/L (12-78); Albumin, Blood 3.0 g/dL (3.4-5.0); Albumin/Globulin Ratio 0.9 (0.8-1.8); Anion Gap 6.0 mmol/L (3-11); Aspartate Aminotrans (AST/SGOT 23.0 U/L (12-37); Bilirubin, Total 0.6 mg/dL (0.1-1.0); Blood Urea Nitrogen 18.0 mg/dL (8-24); CO2, Blood 33.0 mmol/L (21-32); Calcium, Blood 8.4 mg/dL (8.5-10.1); Chloride, Blood 102.0 mmol/L (98-108); Creatinine, Blood 0.81 mg/dL (0.60-1.20); Globulin, Blood 3.3 g/dL (2.2-4.0); Glucose, Blood 100.0 mg/dL (70-99); Magnesium, Blood 2.1 mg/dL (1.6-2.4); Phosphorus, Blood 1.8 mg/dL (2.5-4.9); Potassium, Blood 3.7 mmol/L (3.5-5.5); Sodium, Blood 137.0 mmol/L (136-145); Total Protein, Blood 6.3 g/dL (6.4-8.2)
--- NOTE | 2025-04-05 10:53 | NUR ---
DR PETERSON IN TO SEE PT.
[2025-04-05] MEDS ORDERED: Acetaminophen650 M1 PO (13:20)
[2025-04-05] MEDS ORDERED: HYDMOR2 PO (13:21)
[2025-04-05] MEDS ORDERED: VISBIOME 112.51 EACH PO (13:21)
--- NOTE | 2025-04-05 13:49 | NUR ---
DR PETERSON CANCELLING PT'S DC D/T ABD XR RESULTS NOTIFIED PT AND PT'S FAMILY.
[2025-04-05 14:38] VITALS: BP 122/60
[2025-04-05] MEDS ORDERED: Ciprofloxacin 400MG/D5 200ML 200 ML IV SCH (16:00)
--- NOTE | 2025-04-05 17:28 | NUR ---
SUMMARY PT AMBULATED SEVERAL TIMES IN GIRON W/FAMILY THIS SHIFT. IS HAVING MULTIPLE INCONTINENT SOFT, UNFORMED GRAYISH BMS RECTALLY. PASSING LIQUID GREENISH BROWN LIQUID STOOL FROM ILEOSTOMY. PT ANXIOUS, MEDICATED PER ORDERS FOR ANXIETY AND PAIN THIS AFTERNOON. PT ANXOUS TO BE DC'D. DISCHARGE CANCELLED TODAY BY D/T RESULTS OF ABDOMINAL XR. PT INDEPENDENT IN ROOM.
[2025-04-05 20:30] VITALS: BP 137/62
[2025-04-05] MEDS ORDERED: Lactobacil 2-S.Thermo-Bifido 1 1 Cap PO SCH (21:00)
--- NOTE | 2025-04-06 00:02 | NUR ---
PAIN PTS DAUGHTER WAS ON RM PHONE & ASKED TO SPEAK TO THIS NURSE. DAUGHTER INFORMED ME PT WAS IN PAIN & NEEDED PAIN MEDS. ASKED PT IF THERE WAS A REASON WHY HE HADNT INFORMED ME WHY HE WAS IN PAIN. DAUGHTER SAID PT IS WORRIED TO LET STAFF KNOW ABOUT HIS PAIN BECAUSE HE REALLY WANTS TO GO HOME, DAUGHTER INFORMED PT IT IS IMPORTANT TO TELL STAFF OF PAIN. PT NOT DUE FOR ANY PAIN MEDS, CHARGE NURSE KRISTAN Thornton INFORMED HOSPITALIST PT NEEDING PAIN MEDS & NOT DUE FOR ANYTHING & DR LEWIS CHANGED ORDER TO 1MG PO DILAUDID Q4 & TYLENOL ORDER TO Q4. MEDICATED PT WITH NEW ORDER.
[2025-04-06 04:01] VITALS: BP 129/62
--- NOTE | 2025-04-06 04:24 | NUR ---
SHIFT SUMMARY AOX4. VSS. ILEOSTOMY W/LARGE AMOUNT LIQUID BROWN OUTPUT THIS SHIFT. PT STILL PASSING MIN [place] COLOR SOFT STOOL OUT RECTUM. PT PASSING FLATUS. DENIES N/V. ACTIVE BT. REPORTED 5/10 PAIN TO LLQ ABD @BEGINNING OF SHIFT, AFTER GETTING PAIN MEDS ADJUSTED & MEDICATING PT REPORTS PAIN LEVEL ONLY 1/10 THIS AM. CALL LIGHT IN REACH.
[2025-04-06 07:26] VITALS: BP 117/55
[2025-04-06 08:14] LABS: BASOPHILS ABSOLUTE AUTO 0.04 K/mm3 (0.00-0.23); BASOPHILS PERCENT AUTO 1 % (0-2); EOSINOPHILS ABSOLUTE AUTO 0.16 K/mm3 (0.00-0.68); EOSINOPHILS PERCENT AUTO 2 % (0-6); Hematocrit 34.4 % (37.0-53.0); Hemoglobin 11.6 g/dL (13.5-17.5); IMMATURE GRAN ABSOLUTE AUTO 0.05 K/mm3 (0.00-0.10); IMMATURE GRAN PERCENT AUTO 1 % (0-1); LYMPHOCYTES ABSOLUTE AUTO 0.90 K/mm3 (0.84-5.20); LYMPHOCYTES PERCENT AUTO 11 % (21-46); MONOCYTES ABSOLUTE AUTO 0.94 K/mm3 (0.16-1.47); MONOCYTES PERCENT AUTO 12 % (4-13); Mean Corpuscular HGB Conc 33.7 g/dL (31.5-36.5); Mean Corpuscular Volume 90 fL (80-100); NEUTROPHILS ABSOLUTE AUTO 5.84 K/mm3 (1.96-9.15); NEUTROPHILS PERCENT AUTO 74 % (41-73); NRBC ABSOLUTE 0.00 K/mm3 (0.00-0.02); NRBC Auto 0.0 /100 WBC (0.0-0.2); Platelet Count 247 K/mm3 (150-400); RDW Coefficient Variation 12.4 % (11.7-14.2); RDW Standard Deviation 41.0 fL (35.1-46.3)
[2025-04-06 08:32] LABS: Alanine Aminotransfer (ALT/SGP 37.0 U/L (12-78); Albumin, Blood 2.8 g/dL (3.4-5.0); Albumin/Globulin Ratio 0.9 (0.8-1.8); Anion Gap 6.0 mmol/L (3-11); Aspartate Aminotrans (AST/SGOT 34.0 U/L (12-37); Bilirubin, Total 0.7 mg/dL (0.1-1.0); Blood Urea Nitrogen 9.0 mg/dL (8-24); CO2, Blood 33.0 mmol/L (21-32); Calcium, Blood 8.2 mg/dL (8.5-10.1); Chloride, Blood 98.0 mmol/L (98-108); Creatinine, Blood 0.77 mg/dL (0.60-1.20); Globulin, Blood 3.2 g/dL (2.2-4.0); Glucose, Blood 97.0 mg/dL (70-99); Potassium, Blood 3.6 mmol/L (3.5-5.5); Sodium, Blood 133.0 mmol/L (136-145); Total Protein, Blood 6.0 g/dL (6.4-8.2)
[2025-04-06] MEDS ORDERED: HYDMOR2 PO (10:14)
[2025-04-06] MEDS ORDERED: CIPR500 PO (10:17)
== END 2025-04-06 11:13 | disposition home or self-care (01) | DRG 388 ==
LOC: ER 20:08 → SURS 04-02 00:12 → ERHOLD 04-02 00:12 → SURS 04-02 00:12
PROVIDERS: Family Medicine; Hospitalist; Student in an Organized Health Care Education/Training Program; ADMIT Student in an Organized Health Care Education/Training Program
PROC: 0D9670Z Drainage of Stomach with Drainage Device, Via Natural or Artificial Opening (ICD-10-PCS; principal; 2025-04-01)
PROC: 3E03329 Introduction of Other Anti-infective into Peripheral Vein, Percutaneous Approach (ICD-10-PCS; 2025-04-02)
DX: K56.609 Unspecified intestinal obstruction, unspecified as to partial versus complete obstruction (principal); K65.1 Peritoneal abscess; E87.1 Hypo-osmolality and hyponatremia; E87.20 Acidosis, unspecified; K82.1 Hydrops of gallbladder; F41.1 Generalized anxiety disorder; N40.0 Benign prostatic hyperplasia without lower urinary tract symptoms; E86.0 Dehydration; E11.9 Type 2 diabetes mellitus without complications; I10 Essential (primary) hypertension; K61.39 Other ischiorectal abscess; K80.20 Calculus of gallbladder without cholecystitis without obstruction; Z85.048 Personal history of other malignant neoplasm of rectum, rectosigmoid junction, and anus; Z93.2 Ileostomy status; Z88.0 Allergy status to penicillin; Z88.1 Allergy status to other antibiotic agents; Z88.2 Allergy status to sulfonamides; Z88.5 Allergy status to narcotic agent; Z88.8 Allergy status to other drugs, medicaments and biological substances; Z88.6 Allergy status to analgesic agent; Z90.49 Acquired absence of other specified parts of digestive tract
CPT/HCPCS: 36415; 71045; 74018; 74022; 74177; 74250; 80053; 83605; 83690; 83735; 84100; 85025; 86850; 86900; 86901; 87040; 93005; 93010; 96361; 96374-59; 96375; 99285-25; A9270; J0744; J1171; J1630; J1650; J2060; J2185; J2405; J2470; J3010; J7030; J7120; Q9967